=== PATIENT | female | born 1985 | race Two or more races ===

== ENCOUNTER 2021-04-05 21:11 | Emergency (ER) | payer SELFPAY ==
[~2021-04-05] VITALS: Ht 157.5 cm; Wt 80.0 kg
--- NOTE | 2021-04-05 23:58 | PHYS DOC ---
Past Medical History Past Medical History: No Pertinent History Past Surgical History: No Surgical History Smoking Status: Never Smoker General Adult EDM: Chief Complaint: Fever, cough, Covid positive HPI: HPI: 36-year-old otherwise healthy female comes to the emergency department complaining of 2 to 3 days of cough, fever, says that on Friday she tested positive for COVID-19, says she was having a 102 fever and she had apparently called the nurse line and they advised her to come "get checked for pneumonia ", she denies any chest pain or exertional dyspnea, no palpitations, no headache or neck stiffness/photophobia, no nausea/vomiting or diarrhea, she did not have any known history of thromboembolism, no past cardiac history. Review of Systems: Review of Systems: General: + fevers , no chills, no general weakness Eyes: no blurred vision, no diplopia Skin: no rashes Neck: no swelling, no neck stiffness, no neck pain Heme: no bleeding, no lymph node enlargement Ear/Nose/Throat: No sore throat, no runny nose, no hearing loss, no difficulty swallowing Cardiovascular: no Chest pain, no palpitations Respiratory: No dyspnea, + cough, no hemoptysis Gastrointestinal: No abdominal pain, no nausea, no vomiting, no diarrhea, no blood in stool Genitourinary: no dysuria, no hematuria Musculoskeletal: no back pain, no leg pain, no arm pain, no arthralgia Neurologic: no headaches, no dizziness, no focal numbness/tingling, no focal weakness Psych: no depression, no anxiety, no SI/HI *All review of systems are negative other than what is noted above Heart Score: C/O Chest Pain: No Risk Factors: Risk Factors: DM, Current or recent (<one month) smoker, HTN, HLP, family history of CAD, obesity. Risk Scores: Score 0 - 3: 2.5% MACE over next 6 weeks - Discharge Home Score 4 - 6: 20.3% MACE over next 6 weeks - Admit for Clinical Observation Score 7 - 10: 72.7% MACE over next 6 weeks - Early Invasive Strategies Physical Exam: PE: Gen-well appearing, no acute distress Head: Normocephalic/Atraumatic ENT: atraumatic, PERRLA, EOMI, oropharynx clear Neck: supple, full ROM/strength, no JVD, no nuchal rigidity Lungs: no distress, speaks in full sentences, Clear to auscultation bilaterally CV: reg rate, rhythm, no murmus/rubs/gallops, peripheral pulses equal in all extremities Abdomen: soft/nontender, no guarding/rebound tenderness, no rigidity, non distended, normoactive bowel sounds Musculoskeletal: full ROM/strength in all extremities, atraumatic, no swelling Back: full range of motion/strength Skin: intact, no rashes Lymph: no gross JORDAN Neuro: alert and oriented x 4, CN 2-12 grossly intact, Motor strength is 5/5 in all extremities, no focal sensory deficits, no focal ataxia, ambulatory with steady gait Psych: normal mood/affect Current Patient Data: Vital Signs: Vital Signs Date Time Temp Pulse Resp B/P (MAP) Pulse Ox O2 Delivery O2 Flow Rate FiO2 04/05/21 23:01 102.9 113 24 96 102.9 EKG: EKG: [] Twelve-lead EKG was performed at 12:08 AM: Sinus tachycardia, rate is 150, otherwise nonischemic appearing EKG is normal axis and intervals Radiology/Procedures: Radiology/Procedures: [] Course & Med Decision Making: Course & Med Decision Making Pertinent Labs and Imaging studies reviewed. (See chart for details) [] 36-year-old female is known to be Covid positive and presents to the emergency department complaining of symptomatology and exam findings that I believe is consistent with COVID-19 infection, she does not have any known cardiac risk factors, unlikely any acute bacterial process, unlikely ACS, PE, dissection, pneumothorax, unlikely any intracranial or intra-abdominal infectious pathology, abdomen abundance of caution we will get labs, EKG, D- dimer level to rule out a PE and is otherwise low risk patient, we are seeing occasional cases of Covid induced thromboembolism especially in female patients, room air O2 sat is 95%, she was concerned about pneumonia, will get chest x- ray, will give her some dexamethasone and ibuprofen, will reevaluate examine her during work-up to determine the best course of action at that point re eval at 133am: pt is feeling better, HR improved, breathing improved, workup reviewed , she does appear mildly dehydrated in the labs but normal kidney function, I believe in light of clinical improvement and otherwise negative work-up the patient is stable for discharge at this time Patient was seen in the ED for Symptoms related to COVID-19 and she clinically improved in the ER, there is no apparent evidence of any emergency medical pathology at this time, patient was advised follow-up with their primary care provider /physician in the next 24-48 hours and to return to the ED before then if any new or worsening / concerning symptoms had developed. All questions and concerns were addressed at time of disposition Malini Disclaimer: Dragon Disclaimer: This electronic medical record was generated, in whole or in part, using a voice recognition dictation system. Departure Departure Impression: Primary Impression: Cough Additional Impression: COVID-19 Disposition: HOME / SELF CARE / HOMELESS Condition: IMPROVED Referrals: NO PCP (PCP) BENTLEY MEZA MD 2 days Patient Instructions: Cough, Adult, Dehydration, Adult Additional Instructions: You were mildly dehydrated but otherwise nothing concerning on your tests, no signs of any bacterial pneumonia, I am going to put you on some steroids and antibiotics as a precaution to help you get through this COVID-19 infection, I do recommend you follow-up with a primary care doctor in the next 48 hours either by video or in person, please drink plenty of fluids, return to the nearest emergency room before follow-up if any new or worsening/concerning symptoms develop Scripts Azithromycin (ZITHROMAX) 250 Mg Tablet 1 PKG PO UD, #6 TAB Prov: HEATHER ROJAS MD 04/06/21 Methylprednisolone (MEDROL) 4 Mg Tab.ds.pk 1 PKG PO UD for inflammation, #1 PKG Prov: HEATHER ROJAS MD 04/06/21 HEATHER ROJAS MD Apr 05, 2021 23:57
[2021-04-06 00:16] LABS: BASO % 1 % (0-3); EOS % 0 % (0-3); HEMATOCRIT 39.1 % (36.0-47.0); HEMOGLOBIN 13.7 g/dL (12.0-15.5); LYMPH # 1.1 x10^3/uL (1.0-4.8); LYMPH % 21 % (24-48); MEAN CORPUSCULAR HEMOGLOBIN 32 pg (25-35); MEAN CORPUSCULAR HGB CONC 35 g/dL (31-37); MEAN CORPUSCULAR VOLUME 91 fL (79-100); MONO # 0.3 x10^3/uL (0.0-1.1); MONO % 5 % (0-9); NEUT # 3.9 x10^3/uL (1.8-7.7); NEUT % 73 % (31-73); PLATELET COUNT 160 x10^3/uL (140-400); RED CELL DISTRIBUTION WIDTH 12.7 % (11.5-14.5); WHITE BLOOD COUNT 5.3 x10^3/uL (4.0-11.0)
--- NOTE | 2021-04-06 00:23 | EKG ---
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
[2021-04-06 00:26] LABS: CALCIUM 8.4 mg/dL (8.5-10.1); GFR 63.1; POTASSIUM 3.4 mmol/L (3.5-5.1)
[2021-04-06] MEDS ORDERED: DEXAMETHASONE SOD PHOS 4 MG/ML VIAL IM ONE (00:30)
[2021-04-06] MEDS ORDERED: IBUPROFEN 400 MG TABLET. PO ONE (00:30)
[2021-04-06 00:32] LABS: ALBUMIN 3.7 g/dL (3.4-5.0); ALBUMIN/GLOBULIN RATIO 0.9 (1.0-1.7); TOTAL BILIRUBIN 0.5 mg/dL (0.2-1.0); TOTAL PROTEIN 7.8 g/dL (6.4-8.2)
--- NOTE | 2021-04-06 01:20 | RAD ---
XR CHEST 1V Clinical Indication: Reason: cough, covid + Comparison: None. Findings: The cardiomediastinal silhouette is normal. Lungs are clear. There is no pneumothorax. No pleural eff usion is appreciated. No acute bone abnormality. IMPRESSION: No acute cardiopulmonary process. Electronically signed by: Stephen Solis MD (04/06/2021 1:18 AM) [facility]
[2021-04-06] MEDS ORDERED: AZIT250T PO (01:37)
[2021-04-06] MEDS ORDERED: METH4TAB2 PO (01:37)
[2021-04-06 01:52] VITALS: BP 122/80
== END 2021-04-06 02:00 | disposition home or self-care (01) ==
LOC: ER 21:11
DX: U07.1 COVID-19 (principal)
CPT/HCPCS: 36415; 71045; 80053; 84484; 85025; 85379; 93005; 96372; 99285; J1100